=== PATIENT | male | born 1975 | race Caucasian/White ===

== ENCOUNTER 2019-03-27 11:57 | Emergency (ER) | payer SELFPAY ==
--- NOTE | 2019-03-27 12:11 | ED Physician Documentation ---
Upper Extremity Problem - HISTORIAN Historian: patient - HPI Chief Complaint: Upper Extremity Problem (Redness/Swelling Right Hand) Additional Information: Patient c/o right hand discomfort, redness, swelling that started 3 days ago in his elbow but has radiated to the right hand. Neurovasculars are intact; denies any injury. Location: R hand Onset: days ago (Started 3 days ago) Timing: still present Duration: constant Recent Injury: No Where: home Severity: mild Associated Symptoms: denies: fever, chills, shortness of breath Exacerbated By: nothing Relieved By: nothing Quality: pain (3/10), swelling, tenderness - ROS CONST: no problems EYES/ENT: none CVS/RESP: none GI/: none MS/SKIN/LYMPH: denies: swollen glands NEURO/PSYCH: denies: headache - PAST HX Past History: none Other History: none Surgeries/Procedures: other (eye surgery as a kid) Immunizations: UTD Allergies/Adverse Reactions: Allergies Allergy/AdvReac Type Severity Reaction Status Date / Time cat dander AdvReac Sneezing Verified 03/27/19 12:14 lightening bugs AdvReac Rash Uncoded 03/27/19 12:14 Home Medications: Ambulatory Orders Medication Instructions Recorded Ibuprofen [Ibu] 800 mg PO Q8H PRN #30 tablet 03/27/19 Sulfamethoxazole/Trimethoprim 1 each PO BID #20 tab 03/27/19 [Bactrim Ds] - SOCIAL HX Smoking History: greater than 1 pack/day Drug Use: cocaine, marijuana - FAMILY HX Family History: none - VITAL SIGNS Vital Signs: Vital Signs Temp Pulse Resp BP Pulse Ox 98.5 F 110 H 16 132/91 96 03/27/19 13:14 03/27/19 13:14 03/27/19 13:14 03/27/19 13:14 03/27/19 13:14 - REVIEWED ASSESSMENTS Nursing Assessment Reviewed: Yes Vitals Reviewed: Yes ED Results Lab/Radiology - Lab Results Lab Results: Lab Results 03/27/19 03/27/19 03/27/19 12:33 12:33 12:33 WBC 15.90 K/ul H K/ul (4.00-12.00) RBC 5.20 M/ul M/ul (3.90-5.20) Hgb 15.1 g/dL g/dL (12.0-18.0) Hct 45.5 % % (37.0-53.0) MCV 88.0 fl fl (80.0-100.0) MCH 29.1 pg pg (28.0-34.0) MCHC 33.2 g/dL g/dL (30.0-36.0) RDW 12.3 % % (11.3-14.3) Plt Count 299 K/mm3 K/mm3 (130-400) Neut % (Auto) 82.1 % H % (39.0-79.0) Lymph % (Auto) 9.3 % L % (16.0-50.0) Jerome % (Auto) 6.7 % % (0.0-11.0) Eos % (Auto) 1.2 % % (0.0-6.8) Baso % (Auto) 0.7 % % (0.0-1.5) Neut # (Auto) 13.0 # k/uL H # k/uL (1.4-7.7) Lymph # (Auto) 1.5 # k/uL # k/uL (0.6-4.0) Jerome # (Auto) 1.1 # k/uL H # k/uL (0.0-0.9) Eos # (Auto) 0.2 # k/uL # k/uL (0.0-0.6) Baso # (Auto) 0.1 # k/uL # k/uL (0.0-0.5) Sodium 140 mmol/L mmol/L (137-145) Potassium 3.8 mmol/L mmol/L (3.5-5.1) Chloride 100 mmol/L mmol/L (98-107) Carbon Dioxide 25 mmol/L mmol/L (22-30) Anion Gap 18.8 BUN 13 mg/dL mg/dL (9-20) Creatinine 0.77 mg/dL mg/dL (0.66-1.25) Estimated Creat Clear 206 Est GFR ( Amer) > 60 (60 - ) Est GFR (Non-Af Amer) > 60 (60 - ) Glucose 159 mg/dL H mg/dL (74-106) Uric Acid 7.5 mg/dL mg/dL (3.5-8.5) Calcium 9.6 mg/dL mg/dL (8.4-10.2) Total Bilirubin 0.6 mg/dL mg/dL (0.2-1.3) AST 32 U/L U/L (15-46) ALT 16 U/L U/L (13-69) Alkaline Phosphatase 91 U/L U/L (38-126) Total Protein 9.2 g/dL H g/dL (6.3-8.2) Albumin 4.5 g/dL g/dL (3.5-5.0) - Radiology Radiology Impressions: Exam: Right hand. History: Pain. PA, lateral and oblique view of the right hand are submitted. No signs of fracture or dislocation seen. No bony erosions are seen. No soft tissue abnormalities identified. Impression: No bony abnormality. Electronically signed on Mar 27, 2019 12:50:11 PM CDT by: Juanjose Yin - Orders Orders: ED Orders Category Date Time Status HAND XRAY [HAND 3 VIEWS OR MORE] [RAD] Stat Exams 03/27/19 Taken CBC/PLATELET/DIFF Routine Lab 03/27/19 12:33 Completed CMP Routine Lab 03/27/19 12:33 Completed URIC ACID Stat Lab 03/27/19 12:33 Completed Upper Extremity Problem - EXAM General Appearance: no acute distress, alert Skin: warm/dry, normal color, other (right thumb is reddened, erythema) Shoulder Exam: normal inspection, non-tender, no evidence of injury, normal ROM Elbow/Forearm Exam: normal inspection, non-tender, no evidence of injury, normal ROM Wrist Exam: normal inspection, non-tender, no evidence of injury, normal ROM Hand Exam: normal ROM, soft tissue tenderness Neuro/Tendon: normal sensation, normal motor functions, normal tendon functions, responds to pain EENT: eye inspection normal, ENT inspection normal CVS: heart sounds normal Vascular: no vascular compromise Peripheral: sensation nml, motor nml Central: oriented X3, CN's nml as tested, motor nml, sensation nml, mood/affect nml, cognition normal Respiratory: breath sounds nml Discharge Clincal Impression: Cellulitis of right thumb Prescriptions: Ibuprofen [Ibu] 800 mg PO Q8H PRN #30 tablet PRN Reason: Pain Sulfamethoxazole/Trimethoprim [Bactrim Ds] 1 each PO BID #20 tab Referrals: Primary Doctor,No [Primary Care Provider] - 2 Days Additional Instructions: Take Bactrim DS by mouth twice a day UNTIL GONE Take Ibuprofen 800mg every 8 hours for 24 hours and then every 8 hours as needed for pain/inflammation May use ice packs Follow up with PCP in 7-10 days for re-evaluation Condition: Good Disposition: 01 HOME, SELF-CARE Decision to Admit: NO Decision Time: 15:38
[2019-03-27 12:22] VITALS: BP 132/91
[2019-03-27 12:38] LABS: BASOPHILS % 0.7 % (0.0-1.5)
[2019-03-27 12:50] LABS: eGFR (Non-African) > 60
--- NOTE | 2019-03-27 15:42 | Diagnostic Imaging Report ---
MARITA ORTEGA ED [facility] [id number] [id number] Report Submission Date: Mar 27, 2019 12:50:11 PM CDT Patient Study Name: TIMA PUENTES Date: Mar 27, 2019 12:19:56 PM CDT Modality Type: DX Gender: M Description: HAND 3 VIEWS OR MORE : 75 Institution: [facility] Physician: MARITA ORTEGA ED Exam: Right hand. History: Pain. PA, lateral and oblique view of the right hand are submitted. No signs of fracture or dislocation seen. No bony erosions are seen. No soft tissue abnormalities identified. Impression: No bony abnormality. Electronically signed on Mar 27, 2019 12:50:11 PM CDT by: Juanjose WARD
== END 2019-03-27 13:07 | disposition home or self-care (01) ==
LOC: ED 11:57
DX: L03.011 Cellulitis of right finger (principal)
CPT/HCPCS: 73130; 80053; 84550; 85025; 99282; 99284